=== PATIENT | male | born 1985 | race American Indian/Alaskan Native ===

== ENCOUNTER 2020-01-27 18:10 | Emergency (ER) | payer SELFPAY ==
[2020-01-27 19:08] LABS: Basophils # (Auto) 0.1 K/mm3 (0.0-0.1); Basophils % (Auto) 0.9 % (0.0-1.8); Eosinophils # (Auto) 0.2 K/mm3 (0.0-0.4); Eosinophils % (Auto) 3.2 % (0.0-4.3); Hemoglobin 15.1 gm/dl (11.8-15.2); Lymphocytes # (Auto) 1.8 K/mm3 (1.2-5.4); Lymphocytes % (Auto) 27.7 % (13.4-35.0); Mean Corpuscular HGB Conc 34 % (32-34); Mean Corpuscular Volume 88 fl (84-94); Monocytes # (Auto) 0.6 K/mm3 (0.0-0.8); Monocytes % (Auto) 9.9 % (0.0-7.3); Platelet Count 268 K/mm3 (140-440); Red Blood Count 5.11 M/mm3 (3.65-5.03); Red Cell Distribution Width 13.8 % (13.2-15.2)
[2020-01-27 19:21] LABS: BUN/Creatinine Ratio 17; Blood Urea Nitrogen 15 mg/dL (9-20); Calcium 9.4 mg/dL (8.4-10.2); Hemolysis Index 24
--- NOTE | 2020-01-27 22:43 | Emergency Department Report ---
ED Psych HPI - General Chief Complaint: Psych Stated Complaint: ALEXYS SUAZO Time Seen by Provider: 01/27/20 22:42 Source: patient Mode of arrival: Ambulatory - History of Present Illness Initial Comments: Chief complaint "I am crazy. I am thinking of killing myself." HPI: This is a 34-year-old male who presents to the emergency department for thoughts of killing himself. He hears voices. The voices are insulting him. He denies homicidal ideation. He admits to being destructive in his home. He has broken all the windows and glasses. He is hearing voices that are telling him to be destructive. No known previous psychiatric diagnosis. He does use marijuana. MD Complaint: suicidal ideation, other (Auditory hallucinations) -: Gradual, month(s) (Several months) Associated Psychiatric Symptoms: auditory hallucinations Quality: constant Improves With: none Worsens With: none Context: recent drug abuse, significant life stressor (Currently unemployed ) Associated Symptoms: denies other symptoms Treatments Prior to Arrival: none If Self Harm: admits thoughts of - Related Data Allergies Allergy/AdvReac Type Severity Reaction Status Date / Time No Known Allergies Allergy Unverified 01/27/20 18:16 ED Review of Systems ROS: Stated complaint: ALEXYS SUAZO Other details as noted in HPI Comment: All other systems reviewed and negative Constitutional: denies: fever, malaise Respiratory: denies: cough Cardiovascular: denies: chest pain Gastrointestinal: denies: abdominal pain, nausea, vomiting Psychiatric: depression, auditory hallucinations, suicidal thoughts ED Past Medical Hx - Past Medical History Previous Medical History?: No - Surgical History Past Surgical History?: No - Social History Smoking Status: Never Smoker Substance Use Type: Alcohol, Marijuana ED Physical Exam - General Limitations: No Limitations General appearance: alert, in no apparent distress - Head Head exam: Present: atraumatic, normocephalic - Eye Eye exam: Present: normal appearance - ENT ENT exam: Present: mucous membranes moist - Neck Neck exam: Present: normal inspection, full ROM - Respiratory Respiratory exam: Present: normal lung sounds bilaterally. Absent: respiratory distress, wheezes, rales, rhonchi - Cardiovascular Cardiovascular Exam: Present: regular rate, normal rhythm, normal heart sounds. Absent: systolic murmur, diastolic murmur, rubs, gallop - GI/Abdominal GI/Abdominal exam: Present: soft, normal bowel sounds. Absent: distended, tenderness, guarding, rebound - Rectal Rectal exam: Present: deferred - Extremities Exam Extremities exam: Present: normal inspection - Neurological Exam Neurological exam: Present: alert, oriented X3 - Psychiatric Psychiatric exam: Present: depressed, flat affect - Skin Skin exam: Present: warm, dry, intact, normal color. Absent: rash ED Course Vital Signs 01/27/20 18:19 Temperature 98.1 F Pulse Rate 95 H Respiratory 16 Rate Blood Pressure 117/88 O2 Sat by Pulse 98 Oximetry ED Medical Decision Making - Lab Data Result diagrams: 01/27/20 18:27 01/27/20 18:27 Laboratory Results - last 24 hr 01/27/20 01/27/20 01/27/20 18:27 18:27 18:27 WBC RBC Hgb Hct MCV MCH MCHC RDW Plt Count Lymph % (Auto) [place] % (Auto) Eos % (Auto) Baso % (Auto) Lymph # [place] # Eos # Baso # Seg Neutrophils % Seg Neutrophils # Potassium 4.0 Chloride 102.7 Carbon Dioxide 22 Anion Gap 17 BUN 15 Creatinine 0.9 Estimated GFR > 60 BUN/Creatinine Ratio 17 Glucose 80 Calcium 9.4 Urine Color Urine Turbidity Urine pH Ur Specific [place] Urine Protein Urine Glucose (UA) Urine Ketones Urine Blood Urine Nitrite Urine Bilirubin Urine Urobilinogen Ur Leukocyte Esterase Urine WBC (Auto) Urine RBC (Auto) U Epithel Cells (Auto) Urine Mucus Salicylates < 0.3 L Acetaminophen 5.0 L Plasma/Serum Alcohol 01/27/20 01/27/20 01/27/20 18:27 18:27 22:21 WBC 6.5 RBC 5.11 H Hgb 15.1 Hct 45.0 MCV 88 MCH 30 MCHC 34 RDW 13.8 Plt Count 268 Lymph % (Auto) 27.7 [place] % (Auto) 9.9 H Eos % (Auto) 3.2 Baso % (Auto) 0.9 Lymph # 1.8 [place] # 0.6 Eos # 0.2 Baso # 0.1 Seg Neutrophils % 58.3 Seg Neutrophils # 3.8 Potassium Chloride Carbon Dioxide Anion Gap BUN Creatinine Estimated GFR BUN/Creatinine Ratio Glucose Calcium Urine Color Yellow Urine Turbidity Clear Urine pH 6.0 Ur Specific [place] 1.023 Urine Protein <15 mg/dl Urine Glucose (UA) Neg Urine Ketones Neg Urine Blood Neg Urine Nitrite Neg Urine Bilirubin Neg Urine Urobilinogen 2.0 Ur Leukocyte Esterase Neg Urine WBC (Auto) 1.0 Urine RBC (Auto) 1.0 U Epithel Cells (Auto) 1.0 Urine Mucus Few Salicylates Acetaminophen Plasma/Serum Alcohol < 0.01 - Medical Decision Making This is a 34-year-old male with history of marijuana use. He reports destructive behavior suicidal ideation and auditory hallucinations. Differential diagnosis includes MDD with psychosis, drug-induced psychosis, bipolar disorder. He is medically clear for psychiatric care. I have reviewed CBC chemistry serum toxicology urinalysis which were all within normal limits. Patient was evaluated by our mental health team. Mental health felter tennis balls recommended inpatient stabilization. I have completed 1013 involuntary hold form. Patient will be held involuntarily until patient is transferred to inpatient psychiatric unit. Critical care attestation.: If time is entered above; I have spent that time in minutes in the direct care of this critically ill patient, excluding procedure time. ED Disposition Clinical Impression: Suicidal ideation, Auditory hallucination Is pt being admited?: No Does the pt Need Aspirin: No Condition: Stable Referrals: PRIMARY CARE, [Primary Care Provider] - 3-5 Days
[2020-01-27 22:59] LABS: Bilirubin,Urine NEG (Negative); Blood,Urine NEG (Negative); Color,Urine Yellow (Yellow); Mucus,Urine FEW /HPF; Protein,Urine <15 mg/dL mg/dL (Negative)
[2020-01-28 00:42] LABS: Amphetamine Screen,Urine PRESUMPTIVE POSITIVE; Benzodiazepines Screen,Urine PRESUMPTIVE NEGATIVE; Cannabinoid Screen,Urine PRESUMPTIVE NEGATIVE; Cocaine Screen,Urine PRESUMPTIVE NEGATIVE; Methadone Screen,Urine PRESUMPTIVE NEGATIVE; Opiate Screen,Urine PRESUMPTIVE NEGATIVE
--- NOTE | 2020-01-28 13:46 | Consultation ---
History of Present Illness - Reason for Consult Consult date: 01/28/20 Reason for consult: hallucinations, suicidal thoughts - History of Present Psychiatric Illness gAustina Potter is a 34y/o male patient who presented to the ER with hallucinations and thoughts of killing himself. During my interview with the patient today the patient is lying down. He is a/o x 3. He is responding to internal stimuli. The patient states "I got frustrated yesterday. Kept hearing people talk about I thought I was going to hurt somebody." The patient says, "they keep talking about all these situations, and it changes every day." The patient then looks at the wall. When asking the patient what was he looking at, he replied "nothing. I don't know." He then says, "I was just trying to see if I could hear the voices right now." The patient says, "they are telling me to hurt people. I feel like they are threatening me." But "they mostly keep saying hurt folks." When asking the patient was he presently suicidal, he states, "I'm just trying hard not to be." He denies illicit drug use, except "weed," although his UDS is positive for amphetamines. When informing the patient about his UDS results, he states "I forgot about that." He denies any suicide attempts in the past. The patient also states he doesn't remember his past diagnosis or past medications PAST PSYCHIATRIC HISTORY Diagnoses: Doesn't remember Suicide attempts or Self-harm behavior: Denies Prior psychiatric hospitalizations: Denies Substance Abuse history: "weed" pos for amphetamines Previous psychiatric medications tried: Could not recall Outpatient treatment: Denies PAST MEDICAL HISTORY: Denies Family Psychiatric History: None reported or documented SOCIAL HISTORY Marital Status: Single Living Arrangements: By myself Employment Status: Employed Access to guns/weapons: Denies Education: college History of Abuse: none reported Legal History: none reported REVIEW OF SYSTEMS Constitutional: Negative for weight loss ENT: Negative for stridor Respiratory: Negative for cough or hemoptysis All other systems reviewed and are negative MENTAL STATUS EXAMINATION General Appearance: Dressed appropriately Behavior: calm and cooperative Mood: "frustrated" Affect and affective range: congruent with stated mood Thought Process: goal directed Thought Content: hallucinating, responding to internal stimuli Speech: Normal volume, Regular rate and rhythm Suicidal Ideation: Yes Homicidal Ideation: Yes Hallucinations: Auditory Delusions: None elicited Insight and Judgment: Limited Memory/Cognition: Limited Attention: Normal Orientation: Alert, oriented Assessment Schizoaffective Disorder PLAN Start Risperidone 0.25mg po BID Start Trazodone 50mg po qhs Start Depakote DR 125mg po BID Sitter: Defer to primary Medical: Per primary Disposition: Recommend acute inpatient psychiatric treatment Will continue to follow. Thank you for this consult. Medications and Allergies Allergies Allergy/AdvReac Type Severity Reaction Status Date / Time No Known Allergies Allergy Unverified 01/27/20 18:16 Mental Status Exam - Vital signs Last Vital Signs Temp 98.2 F 01/28/20 02:00 Pulse 94 H 01/28/20 10:19 Resp 19 01/28/20 10:19 BP 108/71 01/28/20 10:19 Pulse Ox 98 01/28/20 10:19 Results Result Diagrams: 01/27/20 18:27 01/27/20 18:27 Abnormal lab results 01/27/20 01/27/20 01/27/20 Range/Units 18:27 18:27 18:27 RBC 5.11 H (3.65-5.03) M/mm3 Lane % (Auto) 9.9 H (0.0-7.3) % Salicylates < 0.3 L (2.8-20.0) mg/dL Acetaminophen 5.0 L (10.0-30.0) ug/mL All other labs normal.
[2020-01-28] MEDS: DIVALPROEX DR 125 MG TAB PO SCH ×2 (15:17→22:15)
[2020-01-28] MEDS: risperiDONE 0.25 MG TAB PO SCH ×2 (15:17→22:16)
[2020-01-28 19:58] LABS: BUN/Creatinine Ratio 14; Blood Urea Nitrogen 15 mg/dL (9-20); Calcium 8.6 mg/dL (8.4-10.2); Hemolysis Index 65
[2020-01-28] MEDS ORDERED: traZODone 50 MG TAB PO SCH (22:00)
[2020-01-29 01:44] VITALS: BP 117/73
--- NOTE | 2020-01-29 11:02 | Progress Note ---
Subjective - Reason for Consult Consult date: 01/29/20 Reason for consult: MHE Requesting physician: NAVI MAURO - Chief Complaint Chief complaint: PSYCH HPI Patient reports doing good and feeling better today, describes a good and stable mood, says he is no longer hearing voices, or wanting to hurt self and does not even remember when he was brought in most likely because he was drinking or using drugs. Patient denies hallucinations, paranoia, thought interference and no features suggestive of hypomania or pa. REVIEW OF SYSTEMS Constitutional: Negative for weight loss ENT: Negative for stridor Respiratory: Negative for cough or hemoptysis All other systems reviewed and are negative MENTAL STATUS EXAMINATION General Appearance and Behavior: Age appropriate, good hygiene, wearing appropriate clothes, lying in bed, good eye contact, cooperative polite with questioning. Cooperation: Participating/engaged Psychomotor Behavior: unremarkable and within normal limits Mood: Good Affect and affective range: Congruent with mood Thought Process: Fluent/Logical Thought Content: Within reality Speech: Normal volume, Regular rate and rhythm Intellectual Functioning: Average Suicidal Ideation: Denies SI Homicidal Ideation: Denies HI Impulse Control: Impaired Insight and Judgment: Normal insight and judgment Memory: Normal Attention: Normal Orientation: Alert, oriented Assessment and Plan - Patient Problems (1) Substance induced mood disorder Current Visit: Yes Status: Acute (2) Amphetamine abuse Current Visit: Yes Status: Acute Treatment Plan MEDICATIONS: Risks, benefits and alternatives of medications discussed with the patient, questions answered and consent obtained from patient. PSYCHOTHERAPY: Supportive psychotherapy provided MEDICAL: Per primary team DELIRIUM PRECAUTIONS: Please re-orient patient frequently, keep lights on during the day, and minimize benzodiazepines and opiates as these medications could worsen patient's confusion. SALES APPOINTMENT COORDINATOR: Per Medical team DISPOSITION: Case discussed with Dr. Zelaya. Do Not Recommend acute inpatient psychiatric hospitalization at this time. Safety Discharge LEGAL STATUS: 1013 rescinded FOLLOW-UP: Will sign off Thank you for the consult. Please contact with any questions and/or concerns. Mental Status Exam - Vital signs Last Vital Signs Temp 98.3 F 01/29/20 01:43 Pulse 94 H 01/29/20 01:43 Resp 18 01/29/20 01:43 BP 117/73 01/29/20 01:43 Pulse Ox 100 01/29/20 01:43 Assessment and Plan - Patient Problems (1) Substance induced mood disorder Status: Acute (2) Amphetamine abuse Status: Acute
[2020-01-29] MEDS: risperiDONE 0.25 MG TAB PO SCH (12:21)
[2020-01-29] MEDS: DIVALPROEX DR 125 MG TAB PO SCH (12:21)
== END 2020-01-29 13:45 | disposition home or self-care (01) ==
LOC: ED 18:10
DX: R44.0 Auditory hallucinations (principal); R45.851 Suicidal ideations; F12.90 Cannabis use, unspecified, uncomplicated
CPT/HCPCS: 36415; 80048; 80307; 80320; 81001; 85025; G0480